=== PATIENT | male | born 1995 | race African-American/Black ===

== ENCOUNTER 2020-09-09 12:51 | Emergency (ER) | payer BC ==
--- OUTSIDE RECORDS SUMMARY | 2020-09-09 12:54 | XMS REPORT | Continuity of Care Document ---
:1995 Author Organization [facility] t Address [address] [place] [address] Care Team Providers Name Role Phone Unavailable Unavailable Unavailable Payers Payer Name Policy Type Policy Number Effective Date Expiration Date S ource Problems This patient has no known problems. Allergies, Adverse Reactions, Alerts Allergy Allergy Status Severity Reaction(s) Onset Inactive Treating Comm ents Source Name Type Date Date Clinician No Known DA Active U [facility] All[facility]ie 10-18 Clear s 00:00: Yeager 00 [facility] Medications This patient has no known medications. Procedures This patient has no known procedures. Results This patient has no known results.
[2020-09-09 14:08] LABS: Urine Blood Trace-lysed (Negative); Urine Glucose Negative (Negative); Urine Protein Negative (Negative); Urine pH 5.5 (5.0-7.0)
--- NOTE | 2020-09-09 14:54 | RAD REPORT ---
EXAM DESCRIPTION: CT - Abdomen Pelvis Wo Contrast - 09/09/2020 2:26 pm CLINICAL HISTORY: Abdominal pain. ABD PAIN COMPARISON: No comparisons TECHNIQUE: CT imaging of the abdomen and pelvis was performed without contrast. Solid organ, bowel a nd vascular assessment is limited due to lack of IV and oral contrast. All CT scans are performed using dose optimization technique as appropriate and may include automated exposure control or mA/KV adjustment according to patient size. FINDINGS: The lower lung zuluaga are clear. Hepatomegaly with steatosis. No bowel obstruction, free air, free fluid or abscess. The appendix is normal. The osseous structures are within normal limits. IMPRESSION: No acute intra-abdominal or pelvic findings. Hepatomegaly with steatosis. A limited non-contrast examination was performed as detailed.
[2020-09-09] MEDS ORDERED: NA CHLORIDE 0.9% 1,000 ML ONE (16:33)
[2020-09-09 18:09] LABS: Absolute Lymphocytes (CBC) 2.6 K/uL (0.7-4.9); Basophils % 1.1 % (0-1.3); Hematocrit 38.2 % (39.6-49.0); Lymphocytes % 31.9 % (15.3-44.8); MPV 7.7 fL (7.6-11.3); RBC Red Blood Cell Count 4.48 M/uL (4.33-5.43)
[2020-09-09 18:38] LABS: BUN Blood Urea Nitrogen 17 mg/dL (7-18); Bicarbonate 29 mmol/L (21-32); Glucose Level 142 mg/dL (74-106); Potassium 3.9 mmol/L (3.5-5.1); Sodium Level 136 mmol/L (136-145)
[2020-09-09 18:40] LABS: Creatine Phosphokinase 2477 U/L (39-308)
--- NOTE | 2020-09-09 18:59 | EDPHYS ---
Physician Documentation [facility] Name: Andrew Beckett Age: 24 yrs Sex: Male : 1995 Arrival Date: 09/09/2020 Time: 12:52 Bed 12 Private MD: ED Physician Cristi Pineda HPI: 09/09 16:33 This 24 yrs old Black Male presents to ER via Ambulatory with complaints of dehydration.kb 16:32 Patient reports abdominal cramping and upper extremity cramps. States he has had this 1 kb time before and it was caused by dehydration.. 16:33 Onset: The symptoms/episode began/occurred yesterday. Severity of symptoms: At their kb worst the symptoms were moderate in the emergency department the symptoms are unchanged. The patient has experienced a previous episode. The patient has not recently seen a physician. Historical: - Allergies: 13:47 No Known Allergies; kg - Home Meds: 13:47 None [Active]; kg - PMHx: 13:47 Hypertension; kg - PSHx: 13:47 None; kg - Immunization history:: Adult Immunizations up to date, Client reports having NOT received the Covid vaccine. - Social history:: Smoking status: Patient reports the use of cigarette tobacco products, smokes one pack cigarettes per day. Patient uses alcohol, weekly. ROS: 16:31 Constitutional: Negative for fever, chills, and weight loss. kb 16:31 Abdomen/GI: Positive for abdominal cramps, Negative for abdominal pain, nausea, vomiting, and diarrhea. 16:31 MS/extremity: Positive for of the right arm and left arm, muscle cramps. 16:31 All other systems are negative. Exam: 16:31 Constitutional: This is a well developed, well nourished patient who is awake, alert, kb and in no acute distress. Head/Face: Normocephalic, atraumatic. ENT: Moist Mucous membranes Cardiovascular: Regular rate and rhythm with a normal S1 and S2. No gallops, murmurs, or rubs. No pulse deficits. Respiratory: Respirations even and unlabored. No increased work of breathing, no retractions or nasal flaring. Abdomen/GI: Soft, non-tender. No distention Skin: Warm, dry with normal turgor. Normal color. MS/ Extremity: Pulses equal, no cyanosis. Neurovascular intact. Full, normal range of motion. Neuro: Awake and alert, GCS 15, oriented to person, place, time, and situation. Moves all extremities. Normal gait. Psych: Awake, alert, with orientation to person, place and time. Behavior, mood, and affect are within normal limits. Vital Signs: 13:44 BP 140 / 99; Pulse 101; Resp 20; Temp 97.1(TE); Pulse Ox 100% on R/A; kg 15:37 BP 144 / 82; Pulse 89; Resp 20; Temp 97.9(O); Pulse Ox 99% on R/A; Weight 188 kg; ld1 Height 5 ft. 5 in. (165.10 cm); Pain 0/10; 17:14 BP 125 / 64; Pulse 93; Resp 18; Pulse Ox 96% on R/A; ld1 18:15 BP 138 / 86; Pulse 86; Resp 18; Pulse Ox 100% ; ld1 15:37 Body Mass Index 68.97 (188.00 kg, 165.10 cm) ld1 MDM: 15:33 Patient medically screened. kb 16:30 Data reviewed: vital signs, nurses notes. Data interpreted: Pulse oximetry: on room air kb is 99 %. Interpretation: normal. 18:58 Counseling: I had a detailed discussion with the patient and/or guardian regarding: the kb historical points, exam findings, and any diagnostic results supporting the discharge/admit diagnosis, lab results, radiology results, the need for outpatient follow up, a family practitioner, to return to the emergency department if symptoms worsen or persist or if there are any questions or concerns that arise at home. 09/09 14:07 Order name: Urine Dipstick-Ancillary; Complete Time: 15:29 EDMS 09/09 15:57 Order name: CBC with Diff; Complete Time: 18:28 kb 09/09 13:50 Order name: CT Abd/Pelvis - Without Contrast; Complete Time: 15:29 kg 09/09 15:57 Order name: Basic Metabolic Panel; Complete Time: 18:41 kb 09/09 15:57 Order name: CPK; Complete Time: 18:41 kb 09/09 15:57 Order name: IV Start; Complete Time: 16:42 kb Administered Medications: 16:42 Drug: NS 0.9% 1000 ml Route: IV; Rate: 1000 ml; Site: left antecubital; ld1 17:50 Follow up: Response: No adverse reaction; IV Status: Completed infusion; IV Intake: ld1 1000ml 18:50 Drug: NS 0.9% 1000 ml Route: IV; Rate: 1000 ml; Site: left antecubital; ss 20:56 Follow up: IV Status: Completed infusion; IV Intake: 1000ml em 18:50 Drug: NS 0.9% 1000 ml Route: IV; Rate: 1000 ml; Site: left antecubital; ss 20:56 Follow up: IV Status: Completed infusion; IV Intake: 1000ml em Disposition Summary: 09/09/20 18:59 Discharge Ordered Location: Home kb Condition: Stable kb Diagnosis - Dehydration kb Followup: kb - With: Emergency Department - When: As needed - Reason: Worsening of condition Followup: kb - With: Private Physician - When: 2 - 3 days - Reason: Recheck today's complaints, Continuance of care, Re-evaluation by your physician Discharge Instructions: - Discharge Summary Sheet kb - Dehydration, Adult kb Forms: - Medication Reconciliation Form kb - Thank You Letter kb - Antibiotic Education kb - Prescription Opioid Use kb - Work release form ea Addendum: 09/12/2020 07:04 Co-signature as Attending Physician, Cristi Pineda MD. r n Signatures: Dispatcher [employer] Amada Zimmer, PROPERTY OFFICER-C PROPERTY OFFICER-Ckb Cristi Pineda MD MD rn Smirch, Shelby, RN RN Yecenia Lopez RN RN ld1 Dixie Glover RN RN kg Munoz, Edgar RN
--- NOTE | 2020-09-09 18:59 | ER ---
Nurse's Notes [facility] Name: Andrew Beckett Age: 24 yrs Sex: Male : 1995 Arrival Date: 09/09/2020 Time: 12:52 Bed 12 Private MD: Diagnosis: Dehydration Presentation: 09/09 13:44 Chief complaint: Patient states: Abdominal cramping starting at 23:00 09/08 and kg continued to get worse. Coronavirus screen: Client denies travel out of the [place] in the last 14 days. At this time, unable to obtain information related to travel outside the [place] At this time, the client does not indicate any symptoms associated with coronavirus-19. Ebola Screen: Patient negative for fever greater than or equal to 101.5 degrees Fahrenheit, and additional compatible Ebola Virus Disease symptoms Patient denies exposure to infectious person. Patient denies travel to an Ebola-affected area in the 21 days before illness onset. Initial Sepsis Screen: Does the patient meet any 2 criteria? No. Patient's initial sepsis screen is negative. Does the patient have a suspected source of infection? No. Patient's initial sepsis screen is negative. Risk Assessment: Do you want to hurt yourself or someone else? Patient reports no desire to harm self or others. Onset of symptoms was September 08, 2020 at 23:00. 13:44 Method Of Arrival: Ambulatory kg 13:44 Acuity: ELIER 3 kg Triage Assessment: 13:47 General: Appears uncomfortable, Behavior is calm, cooperative, appropriate for age, kg quiet. Pain: Complains of pain in abdomen Pain currently is 8 out of 10 on a pain scale. at worst was 10 out of 10 on a pain scale. level that patient reports is acceptable is 3 out of 10 on a pain scale. Quality of pain is described as stabbing. Historical: - Allergies: 13:47 No Known Allergies; kg - Home Meds: 13:47 None [Active]; kg - PMHx: 13:47 Hypertension; kg - PSHx: 13:47 None; kg - Immunization history:: Adult Immunizations up to date, Client reports having NOT received the Covid vaccine. - Social history:: Smoking status: Patient reports the use of cigarette tobacco products, smokes one pack cigarettes per day. Patient uses alcohol, weekly. Screenin:49 Abuse screen: Denies threats or abuse. Denies injuries from another. Nutritional kg screening: No deficits noted. Tuberculosis screening: No symptoms or risk factors identified. Fall Risk None identified. Assessment: 15:37 General: Appears in no apparent distress. comfortable, Behavior is calm, cooperative, ld1 appropriate for age. Pain: Denies pain. Neuro: Level of Consciousness is awake, alert, obeys commands, Oriented to person, place, time, situation. Cardiovascular: Reports diaphoresis, fatigue, pt reports a near syncopal episode two hours ago. Denies chest pain, Capillary refill < 3 seconds Patient's skin is warm and dry. Rhythm is sinus rhythm. Respiratory: Airway is patent Respiratory effort is even, unlabored, Respiratory pattern is regular, symmetrical. GI: Abdomen is non-distended, obese, Patient currently denies abdominal pain. : No signs and/or symptoms were reported regarding the genitourinary system. EENT: No signs and/or symptoms were reported regarding the EENT system. Derm: Skin is diaphoretic. Musculoskeletal: No signs and/or symptoms reported regarding the musculoskeletal system. 17:14 Reassessment: Patient appears in no apparent distress at this time. No changes from ld1 previously documented assessment. Patient is alert, oriented x 3, equal unlabored respirations, skin warm/dry/pink. 18:15 Reassessment: Patient appears in no apparent distress at this time. No changes from ld1 previously documented assessment. Patient and/or family updated on plan of care and expected duration. Pain level reassessed. Patient is alert, oriented x 3, equal unlabored respirations, skin warm/dry/pink. 20:57 Reassessment: Patient appears in no apparent distress at this time. Patient and/or em family updated on plan of care and expected duration. Pain level reassessed. Patient is alert, oriented x 3, equal unlabored respirations, skin warm/dry/pink. Vital Signs: 13:44 BP 140 / 99; Pulse 101; Resp 20; Temp 97.1(TE); Pulse Ox 100% on R/A; kg 15:37 BP 144 / 82; Pulse 89; Resp 20; Temp 97.9(O); Pulse Ox 99% on R/A; Weight 188 kg; ld1 Height 5 ft. 5 in. (165.10 cm); Pain 0/10; 17:14 BP 125 / 64; Pulse 93; Resp 18; Pulse Ox 96% on R/A; ld1 18:15 BP 138 / 86; Pulse 86; Resp 18; Pulse Ox 100% ; ld1 15:37 Body Mass Index 68.97 (188.00 kg, 165.10 cm) ld1 ED Course: 12:52 Patient arrived in ED. am2 13:47 Triage completed. kg 13:47 Arm band placed on left wrist. kg 13:49 Patient has correct armband on for positive identification. kg 14:26 CT Abd/Pelvis - Without Contrast In Process Unspecified. EDMS 15:26 Yecenia Lopez, OTONIEL is Primary Nurse. ld1 15:29 Amada Diaz FNP-C is [facility]. kb 15:29 Cristi Pineda MD is Attending Physician. kb 20:57 No provider procedures requiring assistance completed. IV discontinued, intact, em bleeding controlled, No redness/swelling at site. Pressure dressing applied. Administered Medications: 16:42 Drug: NS 0.9% 1000 ml Route: IV; Rate: 1000 ml; Site: left antecubital; ld1 17:50 Follow up: Response: No adverse reaction; IV Status: Completed infusion; IV Intake: ld1 1000ml 18:50 Drug: NS 0.9% 1000 ml Route: IV; Rate: 1000 ml; Site: left antecubital; ss 20:56 Follow up: IV Status: Completed infusion; IV Intake: 1000ml em 18:50 Drug: NS 0.9% 1000 ml Route: IV; Rate: 1000 ml; Site: left antecubital; ss 20:56 Follow up: IV Status: Completed infusion; IV Intake: 1000ml em Intake: 17:50 IV: 1000ml; Total: 1000ml. ld1 20:56 IV: 1000ml; Total: 2000ml. em 20:56 IV: 1000ml; Total: 3000ml. em Outcome: 18:59 Discharge ordered by . kb 20:57 Discharged to home ambulatory. em 20:57 Condition: improved 20:57 Discharge instructions given to patient, Instructed on discharge instructions, follow up and referral plans. Demonstrated understanding of instructions, follow-up care. 21:39 Patient left the ED. em Signatures: Dispatcher [employer] EDTX Amada Diaz FNP-C FNP-Derek Canseco, RN RN em Roxie Ingram, RN RN ss Anna Watson am2 Yecenia Lopez, RN RN ld1 Dixie Glover RN RN kg
[2020-09-09] MEDS ORDERED: NA CHLORIDE 0.9% 2,000 ML ONE (19:06)
[2020-09-10 16:36] VITALS: TEMP 97.9
[2020-09-10 16:41] VITALS: BP 138/86; O2SAT 100
== END 2020-09-09 21:39 | disposition home or self-care (01) ==
LOC: ER 12:51
DX: E86.0 Dehydration (principal); I10 Essential (primary) hypertension; F17.210 Nicotine dependence, cigarettes, uncomplicated
CPT/HCPCS: 96361; 85025; 80048; 36415; 82550; 81003; 74176; 96360; 99284; J7030 ×2

== ENCOUNTER 2021-04-19 10:41 | Emergency (ER) | payer BC ==
--- OUTSIDE RECORDS SUMMARY | 2021-04-19 10:43 | XMS REPORT | Continuity of Care Document ---
:1995 Author Organization [facility] t Address [address] [place] [address] Care Team Providers Name Role Phone Unavailable Unavailable Unavailable Payers Payer Name Policy Type Policy Number Effective Date Expiration Date S ource Problems This patient has no known problems. Allergies, Adverse Reactions, Alerts Allergy Allergy Status Severity Reaction(s) Onset Inactive Treating Comm ents Source Name Type Date Date Clinician No Known DA Active U [facility] Allergie 10-18 Clear s 00:00: Yeager 00 [facility] Medications This patient has no known medications. Procedures This patient has no known procedures. Results This patient has no known results.
--- NOTE | 2021-04-19 11:41 | RAD REPORT ---
EXAM DESCRIPTION: CT - Stone Protocol - 04/19/2021 11:32 am CLINICAL HISTORY: FLANK PAINleft-side COMPARISON: Abdomen Pelvis Wo Contrast dated 09/09/2020 TECHNIQUE: Axial 3 mm thick images were obtained without oral or IV contrast. The [id number] span s the entirety of the system including uppermost abdomen and lung bases. All CT scans are performed using dose optimization technique as appropriate and may include automated exposure control or mA/KV adjustment according to patient size. FINDINGS: No hydronephrosis is present and no obstructing ureteral calculi. No suspicious renal mass es. Isodense masses and pyelonephritis are not excluded on a stone protocol CT scan. No significant a drenal finding. No urinary bladder suspicious finding. Liver size is prominent with diffuse fatty infiltration. This matches the August 2020 study. No focal l iver lesion identifiable. Spleen and pancreas show no suspicious findings. No gallbladder or biliary tree abnormality identified. No suspicious bowel findings. No hernia, mass or bulky lymphadenopathy noted. No free air, free fluid or inflammatory stranding. No significant bony abnormality. IMPRESSION: Noncontrast CT abdomen and pelvis imaging shows no hydronephrosis, obstructing calculus or other finding to explain provided history of left flank pain. Pronounced fatty infiltration of the liver is again noted. No focal liver lesions seen. Overall, exam shows no significant or suspicious change from August 2020. Isodense masses and pyelonephritis are not excluded on stone protocol technique.
[2021-04-19 12:12] LABS: Urine Blood Negative (Negative); Urine Glucose Negative (Negative); Urine Protein Negative (Negative); Urine pH 5.5 (5.0-7.0)
[2021-04-19 12:22] LABS: Lymphocytes % 34.7 % (15.3-44.8); MPV 7.8 fL (7.6-11.3); RBC Red Blood Cell Count 4.47 M/uL (4.33-5.43)
[2021-04-19 12:31] LABS: Urine Bacteria NONE SEEN /HPF (NONE SEEN); Urine RBC <5 /HPF (NONE SEEN)
[2021-04-19 12:43] LABS: ALT/SGPT 36 U/L (12-78); AST/SGOT 19 U/L (15-37); Alkaline Phosphatase 66 U/L (45-117); BUN Blood Urea Nitrogen 11 mg/dL (7-18); Bicarbonate 28 mmol/L (21-32); Bilirubin Direct 0.1 mg/dL (0-0.2); Bilirubin Total 0.6 mg/dL (0.2-1.0); Glucose Level 82 mg/dL (74-106); Lipase 56 U/L (73-393); Protein, Total 7.9 g/dL (6.4-8.2); Sodium Level 137 mmol/L (136-145)
--- NOTE | 2021-04-19 13:55 | EDPHYS ---
Physician Documentation [facility] Name: Andrew Beckett Age: 25 yrs Sex: Male : 1995 Arrival Date: 04/19/2021 Time: 10:45 Bed 17 Private MD: ED Physician Zulema Lozada HPI: 04/19 11:49 This 25 yrs old Black Male presents to ER via Ambulatory with complaints of Chest Pain, kb Back Pain. 11:50 The patient presents with abdominal pain in the left upper quadrant. Onset: The kb symptoms/episode began/occurred today. The symptoms do not radiate. Associated signs and symptoms: none. The symptoms are described as constant. Modifying factors: The symptoms are alleviated by nothing, the symptoms are aggravated by nothing. Severity of pain: At its worst the pain was moderate in the emergency department the pain is unchanged. The patient has not experienced similar symptoms in the past. The patient has not recently seen a physician. Pt reports left abd pain, left flank pain and "weird feeling" in left chest. States the flank pain came on when urinating. . Historical: - Allergies: 11:03 No Known Allergies; ab2 - Home Meds: 11:03 metformin 500 mg Oral tab 1 tab 2 times per day [Active]; ab2 - PMHx: 11:03 Hypertension; Diabetes mellitus; ab2 - Immunization history:: Adult Immunizations up to date. - Social history:: Smoking status: Reported history of juuling and/or vaping. ROS: 11:48 Constitutional: Negative for fever, chills, and weight loss. kb 11:48 Cardiovascular: Positive for chest pain, Negative for edema, orthopnea, palpitations, paroxysmal nocturnal dyspnea. 11:48 Abdomen/GI: Positive for abdominal pain, of the anterior aspect of left lateral abdomen and posterior aspect of left lateral abdomen. 11:48 All other systems are negative. Exam: 11:48 Constitutional: This is a well developed, well nourished patient who is awake, alert, kb and in no acute distress. Head/Face: Normocephalic, atraumatic. ENT: Moist Mucous membranes Cardiovascular: Regular rate and rhythm with a normal S1 and S2. No gallops, murmurs, or rubs. No pulse deficits. Respiratory: Respirations even and unlabored. No increased work of breathing. Talking in full sentences Abdomen/GI: Soft, non-tender. No distention Skin: Warm, dry with normal turgor. Normal color. MS/ Extremity: Pulses equal, no cyanosis. Neurovascular intact. Full, normal range of motion. Neuro: Awake and alert, GCS 15, oriented to person, place, time, and situation. Moves all extremities. Normal gait. Psych: Awake, alert, with orientation to person, place and time. Behavior, mood, and affect are within normal limits. 11:48 ECG was reviewed by the Attending Physician. 11:48 Back: pain, that is moderate, CVA tenderness, that is mild, is noted on the left. Vital Signs: 11:00 BP 158 / 81; Pulse 76; Resp 18; Temp 97.9(TE); Pulse Ox 100% ; Weight 170.1 kg; Height ab2 5 ft. 6 in. (167.64 cm); Pain 6/10; 12:15 BP 132 / 74; Pulse 74; Resp 15; Pulse Ox 99% ; Pain 5/10; eo2 13:00 BP 128 / 65; Pulse 73; Resp 20; Pulse Ox 99% ; Pain 5/10; eo2 14:00 BP 130 / 90; Pulse 74; Resp 17; Pulse Ox 100% ; Pain 5/10; eo2 14:58 BP 159 / 87; Pulse 68; Resp 16; Pulse Ox 98% ; Pain 3/10; eo2 11:00 Body Mass Index 60.53 (170.10 kg, 167.64 cm) ab2 MDM: 11:09 Patient medically screened. 11:49 Data reviewed: vital signs, nurses notes. Data interpreted: Pulse oximetry: on room air kb is 100 %. Interpretation: normal. 13:54 Counseling: I had a detailed discussion with the patient and/or guardian regarding: the kb historical points, exam findings, and any diagnostic results supporting the discharge/admit diagnosis, lab results, radiology results, the need for outpatient follow up, a family practitioner, to return to the emergency department if symptoms worsen or persist or if there are any questions or concerns that arise at home. 04/19 11:16 Order name: Basic Metabolic Panel kb 04/19 11:16 Order name: CBC with Diff; Complete Time: 12:30 kb 04/19 11:16 Order name: Hepatic Function kb 04/19 11:16 Order name: Lipase kb 04/19 11:16 Order name: Troponin HS kb 04/19 11:16 Order name: Urine Microscopic Only; Complete Time: 12:32 kb 04/19 11:16 Order name: IV Saline Lock; Complete Time: 12:14 kb 04/19 11:16 Order name: Labs collected and sent; Complete Time: 12:14 kb 04/19 11:16 Order name: EKG; Complete Time: 11:16 kb 04/19 11:16 Order name: EKG - Nurse/Tech; Complete Time: 11:24 kb 04/19 11:16 Order name: Chest Single View XRAY; Complete Time: 14:23 kb 04/19 11:16 Order name: CT Stone Protocol; Complete Time: 11:46 kb 04/19 12:12 Order name: Urine Dipstick-Ancillary EDPR 04/19 11:16 Order name: Urine Dipstick-Ancillary (obtain specimen); Complete Time: 12:14 kb EC:48 Rate is 80 beats/min. Rhythm is regular. QRS [place] is Normal. PA interval is normal at kb 166 msec. QRS interval is normal at 84 msec. QT interval is normal at 362 msec. Administered Medications: 14:20 Drug: Ketorolac 15 mg Route: IVP; Site: right antecubital; eo2 14:59 Follow up: Response: No adverse reaction; Pain is decreased eo2 Disposition Summary: 04/19/21 13:54 Discharge Ordered Location: Home kb Condition: Stable kb Diagnosis - Abdominal pain, Generalized kb Followup: kb - With: Emergency Department - When: As needed - Reason: Worsening of condition Followup: kb - With: Private Physician - When: 2 - 3 days - Reason: Recheck today's complaints, Continuance of care, Re-evaluation by your physician Discharge Instructions: - Discharge Summary Sheet kb - Abdominal Pain, Adult, [id number] kb Forms: - Medication Reconciliation Form kb - Thank You Letter kb - Antibiotic Education kb - Prescription Opioid Use kb Prescriptions: - Diclofenac Sodium 75 mg Oral tablet,delayed release (DR/EC) - take 1 tablet by ORAL route 2 times per day As needed; 30 tablet; Refills: 0, kb Product Selection Permitted Signatures: Dispatcher [employer] EDAmada Tejada, PAOLO-C PAOLO-Amina Figueredo RN RN eo2 Bleininger, Trent ab2
--- NOTE | 2021-04-19 13:55 | ER ---
Nurse's Notes [facility] Name: Andrew Beckett Age: 25 yrs Sex: Male : 1995 Arrival Date: 04/19/2021 Time: 10:45 Bed 17 Private MD: Diagnosis: Abdominal pain, Generalized Presentation: 04/19 11:00 Chief complaint: Patient states: "The left side of my chest and left side of my stomach ab2 hurt. I just don't feel right. I don't know if its my liver or kidneys but it radiates to my back." Pt denies any urinary symptoms. Pt states this has been going on for a few days. Coronavirus screen: Vaccine status: Patient reports receiving the 2nd dose of the covid vaccine. Client denies travel out of the [place] in the last 14 days. At this time, the client does not indicate any symptoms associated with coronavirus-19. Ebola Screen: Patient negative for fever greater than or equal to 101.5 degrees Fahrenheit, and additional compatible Ebola Virus Disease symptoms Patient denies exposure to infectious person. Patient denies travel to an Ebola-affected area in the 21 days before illness onset. No symptoms or risks identified at this time. Initial Sepsis Screen: Does the patient meet any 2 criteria? No. Patient's initial sepsis screen is negative. Does the patient have a suspected source of infection? No. Patient's initial sepsis screen is negative. Risk Assessment: Do you want to hurt yourself or someone else? Patient reports no desire to harm self or others. Onset of symptoms is unknown. 11:00 Method Of Arrival: Ambulatory ab2 11:00 Acuity: ELIER 3 ab2 Triage Assessment: 11:04 General: Appears in no apparent distress. comfortable, Behavior is calm, cooperative, ab2 appropriate for age. Pain: Complains of pain in anterior aspect of left upper chest, left lateral anterior chest, left lateral posterior chest and left breast. Cardiovascular: Reports chest pain, Chest pain is described as vague, Pt states its not a pain, just uncomfortable . Historical: - Allergies: 11:03 No Known Allergies; ab2 - Home Meds: 11: metformin 500 mg Oral tab 1 tab 2 times per day [Active]; ab2 - PMHx: 11:03 Hypertension; Diabetes mellitus; ab2 - Immunization history:: Adult Immunizations up to date. - Social history:: Smoking status: Reported history of juuling and/or vaping. Screenin:15 Abuse screen: Denies threats or abuse. Denies injuries from another. Nutritional eo2 screening: No deficits noted. Tuberculosis screening: No symptoms or risk factors identified. Fall Risk None identified. Assessment: 12:14 General: Appears in no apparent distress. comfortable, Behavior is calm, cooperative. eo2 Pain: Complains of pain in chest Pain radiates to left lateral posterior chest Pain began 1 day ago. 12:15 Neuro: Level of Consciousness is awake, alert, obeys commands, Oriented to person, eo2 place, time, situation, Denies dizziness, headache. Cardiovascular: Reports chest pain, left sided chest pain into left back/abdomen Capillary refill < 3 seconds Rhythm is sinus bradycardia. Respiratory: Reports shortness of breath occasionally Airway is patent Trachea midline Respiratory effort is even, unlabored, Respiratory pattern is regular, symmetrical, Breath sounds are clear bilaterally. GI: Reports upper abdominal pain, Patient currently denies diarrhea, nausea, vomiting. : No deficits noted. No signs and/or symptoms were reported regarding the genitourinary system. Vital Signs: 11:00 BP 158 / 81; Pulse 76; Resp 18; Temp 97.9(TE); Pulse Ox 100% ; Weight 170.1 kg; Height ab2 5 ft. 6 in. (167.64 cm); Pain 6/10; 12:15 BP 132 / 74; Pulse 74; Resp 15; Pulse Ox 99% ; Pain 5/10; eo2 13:00 BP 128 / 65; Pulse 73; Resp 20; Pulse Ox 99% ; Pain 5/10; eo2 14:00 BP 130 / 90; Pulse 74; Resp 17; Pulse Ox 100% ; Pain 5/10; eo2 14:58 BP 159 / 87; Pulse 68; Resp 16; Pulse Ox 98% ; Pain 3/10; eo2 11:00 Body Mass Index 60.53 (170.10 kg, 167.64 cm) ab2 Vitals: 12:15 Cardiac Rhythm Assessment Regular Sinus rhythm. eo2 ED Course: 10:45 Patient arrived in ED. ds1 10:56 Amada Diaz FNP-C is PHCP. kb 10:57 Zulema Lozada MD is Attending Physician. kb 11:03 Triage completed. ab2 11:05 Arm band placed on left wrist. ab2 11:32 CT Stone Protocol In Process Unspecified. EDMS 12:13 Amina Pearson, RN is Primary Nurse. eo2 12:14 Urine Dipstick-Ancillary Sent. eo2 12:14 Urine Microscopic Only Sent. eo2 12:15 Patient has correct armband on for positive identification. Placed in gown. Cardiac eo2 monitor on. Pulse ox on. NIBP on. Door closed. Noise minimized. 12:15 No provider procedures requiring assistance completed. Inserted saline lock: 20 gauge eo2 in right antecubital area, using aseptic technique. Blood collected. Patient maintains SpO2 saturation greater than 95% on room air. 14:06 Chest Single View XRAY In Process Unspecified. EDMS 14:59 IV discontinued, intact. eo2 Administered Medications: 14:20 Drug: Ketorolac 15 mg Route: IVP; Site: right antecubital; eo2 14:59 Follow up: Response: No adverse reaction; Pain is decreased eo2 Outcome: 13:54 Discharge ordered by MD. kb 14:59 Discharged to home ambulatory. eo2 14:59 Condition: stable 14:59 Discharge instructions given to patient, Instructed on discharge instructions, follow up and referral plans. medication usage, Demonstrated understanding of instructions, follow-up care, medications, Prescriptions given X 1. 15:00 Patient left the ED. eo2 Signatures: Dispatcher [employer] EDMN Amada Diaz, WATER METER READER-C WATER METER READER-Waib Raquel Toribio ds1 Amina Pearson RN RN eo2 Trent Lema ab2
[2021-04-19] MEDS ORDERED: KETOROLAC 30 MG/ML INJ ONE (14:13)
--- NOTE | 2021-04-19 14:22 | RAD REPORT ---
EXAM DESCRIPTION: RAD - Chest Single View - 04/19/2021 2:06 pm CLINICAL HISTORY: CHEST PAIN Chest pain. COMPARISON: Chest Single View dated 09/16/2015 FINDINGS: Portable technique limits examination quality. The lungs are grossly clear. The heart is normal in size. No displaced fractures. IMPRESSION: No acute intrathoracic process suspected.
[2021-04-19 15:14] LABS: Albumin 3.8 g/dL (3.4-5.0)
[2021-04-19 15:24] VITALS: TEMP 97.9
[2021-04-19 15:31] VITALS: BP 159/87; O2SAT 98
--- NOTE | 2021-04-20 12:52 | EKG ---
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
== END 2021-04-19 15:00 | disposition home or self-care (01) ==
LOC: ER 10:41
DX: R10.84 Generalized abdominal pain (principal); E11.9 Type 2 diabetes mellitus without complications; I10 Essential (primary) hypertension
CPT/HCPCS: 36415; 71045; 74176; 76377; 80048; 80076; 81003; 81015; 83690; 84484; 85025; 93005; 96374; 99285

== ENCOUNTER 2024-03-25 00:08 | Emergency (ER) | payer BC ==
--- OUTSIDE RECORDS SUMMARY | 2024-03-25 00:12 | XMS REPORT | Continuity of Care Document ---
Author Name Unknown Address [address] [place] [address] [facility] Address [address] [place] [address] Care Team Providers Care Ct Scan Technician Name Role Phone Ketan Reyes Primary Care Physician [phone] Doctor Unassigned, [place] Attending Clinician U TICO Escobar Attending Clinician Unavailable TICO LOAIZA Attending Clinician Unavailable Lisette Carter DO Attending Clinician [phone] Delio Swanson MD Attending Clinician [phone] Tico Loaiza DO Attending Clinician [phone] EMILY PERRY Attending Clinician Unavailable EMILY PERRY Attending Clinician Unavailable Emily Perry MD Attending Clinician [phone] Pob, [facility] Main Attending Clinician UnavailGuerline Estrada MD Attending Clinician [phone] GUERLINE NGUYEN Attending Clinician Yanely Kearns MD, Les Haque Attending Clinician [phone] TICO LOAIZA Admitting Clinician Unavailable Tico Loaiza DO Admitting Clinician [phone] EMILY PERRY Admitting Clinician Unavailable Payers Payer Name Policy Type Policy Number Effective Date Expirati on Date Source Problems Condition Name Condition Details Condition Category Status Onset Date Resolution Date Last Treatment Date Treating Clinician Comments Source Acute biliary pancreatit is without infection or necrosis Acute biliary pancreatit is without infection or necrosis Disease Active 02-21 00:00: 00 [facility] Morbid obesity with body mass index of 50 or higher Morbid obesity with body mass index of 50 or higher Disease Active 02-21 00:00: 00 [facility] Allergies, Adverse Reactions, Alerts Allergy Name Allergy Type Status Severity Reaction(s) Onset Date Inactive Date Treating Clinician Comments Source No Known Allergie s DA Active U 10-18 00:00: 00 [facility] NO KNOWN ALLERGIE S Drug Class Active [facility] Social History Social Habit Start Date Stop Date Quantity Comments Source History of tobacco use Cigarette Smoker [facility] of Social function 2024-02-22 00:00:00 2024-02-22 00:00:00 [facility] Sex assigned at 1995 00:00:00 1995 00:00:00 [facility] Smoking Status Start Date Stop Date Source Tobacco smoking consumption unknown [facility] Occasional tobacco smoker 2024-02-22 00:00:00 [facility] Medications Ordered Medication Name Filled Medication Name Start Date Stop Date Current Medication? Ordering Clinician Indication Dosage Frequency Signature (SIG) Comments Components Source metformin HCl (METFORMIN ORAL) 02-22 18:02: 55 Yes 500mg Take 500 mg by mouth in the morning and 500 mg in the evening. [facility] losartan 25 mg tablet 02-22 18:02: 55 Yes 25mg Take 1 tablet by mouth in the morning. [facility] losartan (COZAAR) tablet 25 mg 02-22 15:00: 00 02-23 00:02 :55 No 25mg 25 mg, Oral, DAILY, First dose on Mon02/23/24 at 0900, Until Discontinu ed, Routine [facility] enoxaparin (LOVENOX) injection 40 mg 02-22 02:00: 00 02-23 00:02 :55 No 40mg 40 mg, Subcutaneo us, BID, First dose (after last modificati on) on Mon02/22/24 at 2000, Until Discontinu ed, Routine [facility] ibuprofen (MOTRIN IB) tablet 200 mg 02-22 00:00: 43 02-23 00:02 :55 No 200mg 200 mg, Oral, Q6HPRN, Starting on Mon02/22/24 at 1800, Until Mon02/23/24 at 1802, Routine, Pain (scale 1-3) [facility] glucagon HCL injection 1 mg 02-21 17:42: 22 02-23 00:02 :55 No 1mg [facility] dextrose 50 % in water (D50W) injection 25 mL 02-21 17:42: 22 02-23 00:02 :55 No 25mL [facility] acetaminoph en-codeine (TYLENOL #3) 300-30 mg tablet 1 tablet 02-21 17:35: 19 02-23 00:02 :55 No 1{tbl} 1 tablet, Oral, Q4HPRN, Starting on Mon02/22/24 at 1135, Until Mon02/23/24 at 1802, Routine, Pain (scale 4-6) [facility] HYDROcodone -acetaminop hen (NORCO 5) tablet 1 tablet 02-21 17:35: 08 02-23 00:02 :55 No 1{tbl} 1 tablet, Oral, Q6HPRN, Starting on Mon02/22/24 at 1135, Until Mon02/23/24 at 1802, Routine, Pain (scale 7-10) [facility] NaCl 0.9% (NS) IV infusion 1,000 mL 02-21 16:30: 00 02-23 00:02 :55 No 1000mL at 125 mL/hr, IV Infusion, CONTINUOUS , Starting on Mon02/22/24 at 1030, Until Mon02/23/24 at 1802, Routine [facility] ondansetron (ZOFRAN (PF)) injection 4 mg 02-21 16:28: 15 02-23 00:02 :55 No 4mg 4 mg, Slow IV Push, Q6HPRN, Starting on Mon02/22/24 at 1028, Until Mon02/23/24 at 1802, Administer over 2-5 Minutes, 2 mL [facility] lactated ringers IV infusion 1,000 mL 02-21 12:30: 00 02-21 16:01 :00 No 1000mL at 999 mL/hr, 1,000 mL, Intravenou s, ONCE, 1 dose, On Mon02/22/24 at 0630, Routine [facility] iopamidol (ISOVUE 370-500 mL) injection 100 mL 02-21 12:06: 00 02-21 11:55 :00 No [id number] 100mL 100 mL, Intravenou s, ONCE, 1 dose, On Mon02/22/24 at 0615, [facility] 4 mg 02-21 11:45: 00 02-22 03:43 :00 No 4mg 4 mg, Slow IV Push, ONCE, 1 dose, On Mon02/22/24 at 0545, STAT [facility] maalox/diph enhydrAMINE :lidocaine2 %viscous 1:1:1: suspension (COMPOUNDED ) 2023-02 06:45: 00 02-04 06:43 :00 No 15mL 15 mL, Oral, ONCE, 1 dose, On Mon02/05/24 at 0045, Routine [facility] fentanyl PF (SUBLIMAZE (PF)) injection 25 mcg 2023-02 06:45: 00 02-04 06:43 :00 No 25ug 25 mcg, Slow IV Push, ONCE, 1 dose, On Mon02/05/24 at 0045, STAT [facility] maalox/diph enhydrAMINE :lidocaine2 %viscous 1:1:1: suspension (COMPOUNDED ) 2023-02 02:15: 00 01-30 02:24 :00 No 15mL 15 mL, Oral, ONCE, 1 dose, On Mon01/30/24 at 2014, Routine [facility] ondansetron (ZOFRAN (PF)) injection 4 mg 2023-02 02:15: 00 01-30 02:29 :00 No 4mg 4 mg, Slow IV Push, ONCE, 1 dose, On Mon01/30/24 at 2014, Administer over 2-5 Minutes, 2 mL [facility] morpHINE (4 mg/mL) injection 4 mg 2023-02 02:15: 00 01-30 02:24 :00 No 4mg 4 mg, Slow IV Push, ONCE, 1 dose, On Mon01/30/24 at 2014, STAT [facility] ondansetron (ZOFRAN) 4 mg tablet 2023-02 00:00: 00 Yes [id number] 4mg Take 1 tablet by mouth every 8 (eight) hours as needed for Nausea and Vomiting (N/V). [facility] HYDROcodone -acetaminop hen 10-325 mg tablet 2023-02 00:00: 00 02-06 05:59 :00 Yes 4647 1{tbl} Take 1 tablet by mouth every 6 (six) hours as needed for Pain (scale 7-10) for up to 7 days. Indication s: acute pain [facility] Vital Signs Vital Name Observation Time Observation Value Comments S ource Systolic blood pressure 2024-02-23 18:37:00 127 mm[Hg] [facility] Diastolic blood pressure 2024-02-23 18:37:00 81 mm[Hg] [facility] Heart rate 2024-02-23 18:37:00 77 /min [facility] Body temperature 2024-02-23 18:37:00 36.5 Evelyn [facility] Respiratory rate 2024-02-23 18:37:00 18 /min [facility] Oxygen saturation in Arterial blood by Pulse oximetry 2024-02-23 18:37:00 98 /min [facility] Body height 2024-02-22 23:51:00 167.6 cm [facility] Body weight 2024-02-22 23:51:00 176.903 kg [facility] BMI 2024-02-22 23:51:00 62.95 kg/m2 [facility] Systolic blood pressure 2024-02-22 08:18:00 174 mm[Hg] [facility] Diastolic blood pressure 2024-02-22 08:18:00 114 mm[Hg] [facility] Heart rate 2024-02-22 08:18:00 101 /min [facility] Body temperature 2024-02-22 08:18:00 36.83 Evelyn [facility] Respiratory rate 2024-02-22 08:18:00 21 /min [facility] Body height 2024-02-22 08:18:00 165.1 cm [facility] Body weight 2024-02-22 08:18:00 176.903 kg [facility] BMI 2024-02-22 08:18:00 64.90 kg/m2 [facility] Oxygen saturation in Arterial blood by Pulse oximetry 2024-02-22 08:18:00 99 /min [facility] Systolic blood pressure 2024-02-05 08:00:00 170 mm[Hg] [facility] Diastolic blood pressure 2024-02-05 08:00:00 78 mm[Hg] [facility] Heart rate 2024-02-05 08:00:00 77 /min [facility] Respiratory rate 2024-02-05 08:00:00 16 /min [facility] Oxygen saturation in Arterial blood by Pulse oximetry 2024-02-05 08:00:00 95 /min [facility] Body temperature 2024-02-05 06:06:00 36.06 Evelyn [facility] Body height 2024-02-05 06:06:00 167.6 cm [facility] Body weight 2024-02-05 06:06:00 176.903 kg [facility] BMI 2024-02-05 06:06:00 62.95 kg/m2 [facility] Systolic blood pressure 2024-01-31 04:32:18 134 mm[Hg] [facility] Diastolic blood pressure 2024-01-31 04:32:18 70 mm[Hg] [facility] Heart rate 2024-01-31 04:32:18 80 /min [facility] Body temperature 2024-01-31 04:32:18 36.5 [facility] Respiratory rate 2024-01-31 04:32:18 21 /min [facility] Oxygen saturation in Arterial blood by Pulse oximetry 2024-01-31 04:32:18 97 /min [facility] Body height 2024-01-31 01:13:00 167.6 cm [facility] Body weight 2024-01-31 01:13:00 176.903 kg [facility] BMI 2024-01-31 01:13:00 62.95 kg/m2 [facility] Procedures Procedure Date / Time Performed Performing Clinician Source MAGNESIUM 2024-02-23 12:32:00 Ney Nguyen [facility] BASIC METABOLIC PANEL (NA, K, CL, CO2, GLUCOSE, BUN, CREATININE, CA) 2024-02-23 12:32:00 Gabriela Arrieta [facility] CBC WITH DIFF 2024-02-23 12:31:00 Ney Nguyen [facility] PHOSPHORUS 2024-02-22 17:16:00 Ney Nguyen [facility] US GALL BLADDER 2024-02-22 13:48:09 Lisette Carter [facility] CT ABDOMEN PELVIS W CONTRAST 2024-02-22 12:06:13 Lisette Carter [facility] LIPASE 2024-02-22 11:50:00 Raul, [facility] HEPATIC FUNCTION PANEL (13466) (ALB,T.PRO,BILI T,BU/BC,ALT,AST,ALK PHOS) 2024-02-22 11:50:00 [facility] (NA, K, CL, CO2, GLUCOSE, BUN, CREATININE, CA) 2024-02-22 11:50:00 Raul [facility] LIPID PANEL (68685)(TOTAL CHOLESTEROL, TRIGLYCERIDES, HDL) 2024-02-22 11:50:00 Delio Swanson [facility] GLYCOSYLATED HEMOGLOBIN (A1C) 2024-02-22 11:50:00 Gabriela Arrieta [facility] EXTRA TUBE LAV 2024-02-22 11:50:00 Raul [facility] COMP. METABOLIC PANEL (47272) 2024-02-22 08:28:00 mEily Perry [facility] CBC WITH DIFF 2024-02-22 08:28:00 Emily Perry [facility] URINALYSIS 2024-02-05 07:24:00 Les Kearns [facility] LIPASE 2024-02-05 06:15:00 Les Kearns [facility] COMP. METABOLIC PANEL (10832) 2024-02-05 06:15:00 Les Kearns [facility] CBC WITH DIFF 2024-02-05 06:15:00 Les Kearns [facility] CT ABDOMEN PELVIS WO CONTRAST 2024-01-31 03:24:57 Emily Perry [facility] LIPASE 2024-01-31 02:24:00 Emily Perry [facility] TROPONIN I 2024-01-31 02:24:00 Emily Perry [facility] COMP. METABOLIC PANEL (24192) 2024-01-31 02:24:00 Emily Perry [facility] CBC WITH DIFF 2024-01-31 02:24:00 Taylor Perrypavithra [facility] Encounters Start Date/Time End Date/Time Encounter Type Admission Type Attending Clinicians Care Facility Care Department Encounter ID Source 2024-02-15 00:00:00 2024-03-23 18:23:08 Patient Secure Msg Doctor Unassigned, [place] Doctor Unassigned, [place] [facility] 1..114 350.1.13.10 4.2.7.2.686 [id number] [facility] 2024-02-22 05:23:00 2024-02-23 18:02:00 Outpatient X TICO LOAIZA [facility] [id number] [facility] 2024-02-22 05:23:00 2024-02-23 18:02:00 Emergency Lisette Carter, Tico Robert [facility] ([place]) 1.114 350.1.13.10 4.2.7.2.686 [id number] [facility] 2024-02-22 02:16:00 2024-02-22 03:23:00 Emergency X EMILY PERRY WAKILI [facility] [id number] [facility] 2024-02-22 02:16:00 2024-02-22 03:23:00 Emergency Emily Perry [facility] 1.114 350.1.13.10 4.2.7.2.686 [id number] [facility] 2024-02-09 10:45:00 2024-02-09 11:00:00 Cherry Grower Visit Poabigail, [facility] Main Guerline Nguyen, [facility] Main [facility] 1..114 350.1.13.10 4.2.7.2.686 [id number] [facility] 2024-02-09 10:45:00 2024-02-09 10:45:00 Outpatient R PATRICKGUERLINE [facility] [id number] [facility] 2024-02-05 00:01:00 2024-02-05 02:23:00 Emergency Les Kearns [facility] [id number] 350.1.13.10 4.2.7.2.686 [id number] [facility] 2024-01-30 19:17:00 2024-01-30 22:38:00 Emergency Emily Perry [facility] 1.2.840.114 350.1.13.10 4.2.7.2.686 [id number] [facility] 2024-01-30 19:17:00 2024-01-30 22:38:00 Emergency X CHANDAN PERRYAMIE SULLIAVNANNE TAYLORPAVITHRA [facility] ERT [id number] [facility] Results Test Description Test Time Test Comments Results Result Co mments Source [facility] [id number] 16:11:34EXAM: US GALL BLADDER HISTORY: 28 years-old Male with RUQ abdominal pain . TECHNIQUE: Limited abdominal ultrasound performed focused on thegallbladder. Main portal vein was evaluated with color Doppler imaging.Anesthesiologist Physician images were obtained for the record. COMPARISON: CT abdomen pelvis dated 02/22/2024 FINDINGS: Limited evaluation due to patient's body habitus. LIVER: Limited evaluation of theliver on this focused gallbladder examination..Visualized liver parenchyma appears echogenic with decreased distinction ofperiportal echogenicity, sparing a patchy focus around gallbladder. Hepatopetal flow in the main portal vein. GALLBLADDER:No cholelithiasis. Hyperechoic foci within the nondependent gallbladderfundal wall with common tail artifact are likely representingadenomyomatosis, the largest one measuring up to 0.9 cm. Normal gallbladder wall thickness, 2 mm.Negative Hopson's sign.. BILE DUCTS:No intra- or extrahepatic biliary dilatation..Common Duct diameter: 0.4 cm. PANCREAS: Limited visualization due to shadowing from bowel gas..[facility] (92110)(Total Cholesterol, Triglycerides, HDL) 2024-02-22 15:01:22* Test Item Value Reference Range Interpretation Comme nts CHOL (test code = 1209077064) 186 mg/dL 120-200 HDL (test code = 3015467807) 27 mg/dL >=40 L HDLC RATIO (test code = 1670194914) 6.9 <=5.0 H TRIG (test code = 5560103827) 102 mg/dL 30-170 LDL CHOL (test code = 05452-5) 139 mg/dL <=160 VLDL (test code = 7470222076) 20 mg/dL 5-60 Lab Interpretation (test cod e = 12237-1) [facility]normal [facility] 12:50:45* Test Item Value Reference Range Interpretation Comme nts LIPASE (test code = 0234505591) 3226 U/L 0-220 H Lab Interpretation (test cod e = 73637-6) [facility] w [id number] 12:46:57EXAM: CT ABDOMEN PELVIS W CONTRAST HISTORY: 28 years-old Male with Abdominal abscess/infection suspected .Lipase 4196. TECHNIQUE: Contiguous axial imaging from the level of the lung basesthrough the proximal thighs was performed with intravenous contrast.Coronal and sagittal reconstructions were obtained. COMPARISON: 01/30/2024 FINDINGS: LOWER THORAX: The partially included lungs are clear. LIVER: Normal liver contour. No mass. GALLBLADDER AND BILIARY TREE: No cholelithiasis. No ductal dilatation. SPLEEN: Normal PANCREAS: Subtle peripancreatic fat stranding. Suspected enlargement of thepancreatic tail where there is decrease definition of pancreatic clefts. Noductal dilatation. No peripancreatic collection. ADRENAL GLANDS: Normal adrenal glands. KIDNEYS: Symmetric nephrograms. No stones or hydronephrosis. No mass. PELVIS/BLADDER: Unremarkable bladder. Normal prostate. GI TRACT: No boweldilatation. Normal appendix. PERITONEUM AND RETROPERITONEUM: No free air or organized fluid collection. LYMPH NODES: No lymphadenopathy. VESSELS: No critical stenosis. The SMA and celiac trunk share a commonorigin. BONES AND SOFT TISSUES: No acute osseous findings. Small fat-containingumbilical hernia.[facility] (NA, K, CL, CO2, GLUCOSE, BUN, CREATININE, CA)2024-02-22 12:34:38* Test Item Value Reference Range Interpretation Comme nts NA (test code = 7108471795) 137 mmol/L 135-145 K (test code = 9602767814) 4.2 mmol/L 3.5-5.0 CL (test code = 8288057547) 103 mmol/L 98-108 CO2 TOTAL (test code = 5791507739) 29 mmol/L 23-31 AGAP (test code = 8134352927) 5 2-16 BUN (test code = 2190568152) 10 mg/dL 7-23 GLUCOSE (test code = 8926756661) 173 mg/dL 70-110 H CREATININE (test code = 2160-0) 0.75 mg/dL 0.60-1.25 CALCIUM (test code = 3979664270) 9.2 mg/dL 8.6-10.6 eGFR (test code = 21002-2) 124.5 mL/min/1.73m2 CKD-EPI eGFR (2020). Assuming creatinine has been stable day-to-day for at least three months, the eGFR indicates Category G1 (>= 90 mL/min/1.73 m2) Lab Interpretation (test code = 63214-9) Abnormal [facility] PAN[facility] (52770) (ALB,T.PRO,BILI T,BU/BC,ALT,AST,ALK PHOS)2024-02-22 12:34:38* Test Item Value Reference Range Interpretation Comme nts TOTAL BILI (test code = 5733452249) 0.8 mg/dL 0.1-1.1 BILI UNCON (test code = 4593804852) 0.4 mg/dL 0.1-1.1 BILI CONJ (test code = 4674870156) 0.0 mg/dL 0.0-0.3 T PROTEIN (test code = 4749154335) 8.2 g/dL 6.3-8.2 ALBUMIN (test code = 8198599902) 4.4 g/dL 3.5-5.0 ALK PHOS (test code = 1099443483) 69 U/L 34-122 ALTv (test code = 1742-6) 33 U/L 5-50 AST(SGOT) (test code = 0946213479) 34 U/L 13-40 Lab Interpretation (test cod e = 97893-3) Normal [facility] 09:12:50* Test Item Value Reference Range Interpretation Comme nts NA (test code = 0882241723) 138 mmol/L 135-145 K (test code = 3247615924) 3.8 mmol/L 3.5-5.0 CL (test code = 4016670331) 102 mmol/L 98-108 CO2 TOTAL (test code = 7776406806) 26 mmol/L 23-31 AGAP (test code = 9888903720) 10 2-16 BUN (test code = 6360980124) 10 mg/dL 7-23 GLUCOSE (test code = 3709769032) 189 mg/dL 70-110 H CREATININE (test code = 2160-0) 0.85 mg/dL 0.60-1.25 TOTAL BILI (test code = 5304651537) 0.6 mg/dL 0.1-1.1 CALCIUM (test code = 5118829543) 9.4 mg/dL 8.6-10.6 T PROTEIN (test code = 5557568392) 7.8 g/dL 6.3-8.2 ALBUMIN (test code = 6304331175) 4.5 g/dL 3.5-5.0 ALK PHOS (test code = 6899593382) 71 U/L 34-122 ALTv (test code = 1742-6) 34 U/L 5-50 AST(SGOT) (test code = 1617637493) 37 U/L 13-40 eGFR (test code = 06590-5) 119.9 mL/min/1.73m2 CKD-EPI eGFR (2020). Assuming creatinine has been stable day-to-day for at least three months, the eGFR indicates Category G1 (>= 90 mL/min/1.73 m2) Lab Interpretation (test code = 16671-7) [facility] with [id number] 08:45:24* Test Item Value Reference Range Interpretation Comme nts WBC (test code = 6690-2) 8.30 4.20-10.70 RBC (test code = 789-8) 4.46 4.26-5.52 HGB (test code = 718-7) 12.5 g/dL 12.2-16.4 HCT (test code = 4544-3) 39.2 % 38.4-49.3 MCV (test code = 787-2) 87.9 fL 81.7-95.6 MCH (test code = 785-6) 28.0 pg 26.1-32.7 MCHC (test code = 786-4) 31.9 g/dL 31.2-35.0 RDW-SD (test code = 53251-9) 42.2 fL 38.5-51.6 RDW-CV (test code = 788-0) 13.0 % 12.1-15.4 PLT (test code = 777-3) 338 150-328 H MPV (test code = 44534-3) 9.8 fL 9.8-13.0 NRBC/100 WBC (test code = 9886352871) 0.0 0.0-10.0 NRBC x10^3 (test code = 9765170396) See_Comment [Automated messa ge] The system which generated this result transmitted reference range: 10*3/?L. The reference range was not used to interpret this result as normal/abnormal. GRAN MAT (NEUT) % (test code = 770-8) 54.8 % IMM GRAN % (test code = 2859282252) 0.20 % LYMPH % (test code = 736-9) 34.1 % MONO % (test code = 5905-5) 8.8 % EOS % (test code = 713-8) 1.9 % BASO % (test code = 706-2) 0.2 % GRAN MAT x10^3(ANC) (test code = 2967999100) 4.54 10*3/uL 1.99-6.95 IMM GRAN x10^3 (test code = 9064942998) 0.00-0.06 LYMPH x10^3 (test code = 731-0) 2.83 10*3/uL 1.09-3.23 MONO x10^3 (test code = 742-7) 0.73 10*3/uL 0.36-1.02 EOS x10^3 (test code = 711-2) 0.16 10*3/uL 0.06-0.53 BASO x10^3 (test code = 704-7) 0.01-0.09 Lab Interpretation (test code = 72727-7) [facility] (82059)2024-02-05 06:49:48* Test Item Value Reference Range Interpretation Comme nts NA (test code = 1290513904) 137 mmol/L 135-145 K (test code = 7807858062) 4.5 mmol/L 3.5-5.0 CL (test code = 9226319606) 103 mmol/L 98-108 CO2 TOTAL (test code = 4660247269) 26 mmol/L 23-31 AGAP (test code = 8029916262) 8 2-16 BUN (test code = 1246988748) 12 mg/dL 7-23 GLUCOSE (test code = 6004742714) 106 mg/dL 70-110 CREATININE (test code = 2160-0) 0.84 mg/dL 0.60-1.25 TOTAL BILI (test code = 8769715847) 0.7 mg/dL 0.1-1.1 CALCIUM (test code = 7882299530) 9.3 mg/dL 8.6-10.6 T PROTEIN (test code = 1344785977) 8.0 g/dL 6.3-8.2 ALBUMIN (test code = 0334012202) 4.5 g/dL 3.5-5.0 ALK PHOS (test code = 4463049894) 54 U/L 34-122 ALTv (test code = 1742-6) 63 U/L 5-50 H AST(SGOT) (test code = 0026399424) 40 U/L 13-40 eGFR (test code = 47452-9) 120.3 mL/min/1.73m2 CKD-EPI eGFR (2020). Assuming creatinine has been stable day-to-day for at least three months, the eGFR indicates Category G1 (>= 90 mL/min/1.73 m2) Lab Interpretation (test code = 20311-6) [facility] 06:49:08* Test Item Value Reference Range Interpretation Comme nts LIPASE (test code = 7128638648) 388 U/L 0-220 H Lab Interpretation (test cod e = 35704-5) Abnormal [facility] WITH [id number] 06:35:24* Test Item Value Reference Range Interpretation Comme nts WBC (test code = 6690-2) 7.07 4.20-10.70 RBC (test code = 789-8) 4.42 4.26-5.52 HGB (test code = 718-7) 12.5 g/dL 12.2-16.4 HCT (test code = 4544-3) 39.2 % 38.4-49.3 MCV (test code = 787-2) 88.7 fL 81.7-95.6 MCH (test code = 785-6) 28.3 pg 26.1-32.7 MCHC (test code = 786-4) 31.9 g/dL 31.2-35.0 RDW-SD (test code = 73048-4) 41.6 fL 38.5-51.6 RDW-CV (test code = 788-0) 12.7 % 12.1-15.4 PLT (test code = 777-3) 328 150-328 MPV (test code = 20463-9) 9.6 fL 9.8-13.0 L NRBC/100 WBC (test code = 6541492810) 0.0 0.0-10.0 NRBC x10^3 (test code = 4697121599) See_Comment [Automated messa ge] The system which generated this result transmitted reference range: 10*3/?L. The reference range was not used to interpret this result as normal/abnormal. GRAN MAT (NEUT) % (test code = 770-8) 49.6 % IMM GRAN % (test code = 1086791834) 0.10 % LYMPH % (test code = 736-9) 39.7 % MONO % (test code = 5905-5) 8.5 % EOS % (test code = 713-8) 1.7 % BASO % (test code = 706-2) 0.4 % GRAN MAT x10^3(ANC) (test code = 6076591390) 3.50 10*3/uL 1.99-6.95 IMM GRAN x10^3 (test code = 7469024528) 0.00-0.06 LYMPH x10^3 (test code = 731-0) 2.81 10*3/uL 1.09-3.23 MONO x10^3 (test code = 742-7) 0.60 10*3/uL 0.36-1.02 EOS x10^3 (test code = 711-2) 0.12 10*3/uL 0.06-0.53 BASO x10^3 (test code = 704-7) 0.03 10*3/uL 0.01-0.09 Lab Interpretation (test code = 29735-2) [facility] [id number] 03:41:09EXAM: CT ABDOMEN PELVIS WO CONTRAST ORDERING PROVIDER: EMILY PERRY HISTORY: 28 years-old Male; Ordered Indication: Abdominal pain, acute,nonlocalized . TECHNIQUE: Contiguous axial imaging from the level of the lung basesthrough the proximal thighs was performed without the intravenousadministration of contrast. Coronal and sagittal reconstructions wereobtained. COMPARISON: None FINDINGS: LOWER THORAX: No suspicious nodule is seen.. LIVER: No suspicious lesion is seen within a noncontrast examination. Theliver is enlarged over 19 cm in the craniocaudal dimension and theparenchyma is diffusely steatotic. GALLBLADDER AND BILIARY TREE: The gallbladder is decompressed. No biliaryductal dilatation is visualized. SPLEEN: The spleen is normal in size. PANCREAS: No ductal dilation or solid mass is visualized. ADRENAL GLANDS: No mass is seen. KIDNEYS/URETER/BLADDER: No stone, hydronephrosis, or suspicious mass isvisualized. The bladder is unremarkable. PELVIC ORGANS: No suspicious pelvic mass is seen. GI TRACT: No obstruction is seen. The appendix appears unremarkable. PERITONEUM AND RETROPERITONEUM: No intra-abdominal free air or fluidcollection is visualized. LYMPH NODES: No suspicious lymphadenopathy is seen. VESSELS: The vessels are grossly unremarkable. BONES AND SOFT TISSUES: Nosuspicious osseous lesion is seen. [id number]13:11* Test Item Value Reference Range Interpretation Comme nts TROPONIN I (test code = 1461923203) 0.001 ng/mL <=0.034 TIFFANY (test code = TIFFANY) Reference (Normal) Range (defined by the 99th percentile reference limit): <= 0.034 ng/mL Note: Cardiac troponin begins to rise 3-4 hours after the onset of ischemia. Repeat in 4-6 hours if the sample was drawn within 3-4 hours of the onset of the symptom and found normal. Diagnosis of myocardial injury is made with acute changes in cTn concentrations with at least one serial sample above the 99th percentile upper reference limit (URL), taken together with the patient's clinical presentation. Biotin has been reported to cause a negative bias, interpret results relative to patient's use of biotin. Lab Interpretation (test code = 06832-0) Normal [facility]. Metabolic Panel ([id number] 03:01:50* Test Item Value Reference Range Interpretation Comme nts NA (test code = 9447553370) 140 mmol/L 135-145 K (test code = 9569314628) 3.6 mmol/L 3.5-5.0 CL (test code = 2706494429) 105 mmol/L 98-108 CO2 TOTAL (test code = 8387514639) 24 mmol/L 23-31 AGAP (test code = 3086757358) 11 2-16 BUN (test code = 3057062340) 12 mg/dL 7-23 GLUCOSE (test code = 0980098157) 146 mg/dL 70-110 H CREATININE (test code = 2160-0) 0.89 mg/dL 0.60-1.25 TOTAL BILI (test code = 4976270176) 0.4 mg/dL 0.1-1.1 CALCIUM (test code = 1552675782) 9.4 mg/dL 8.6-10.6 T PROTEIN (test code = 2075384676) 7.4 g/dL 6.3-8.2 ALBUMIN (test code = 8815510120) 4.2 g/dL 3.5-5.0 ALK PHOS (test code = 8919430110) 71 U/L 34-122 ALTv (test code = 1742-6) 41 U/L 5-50 AST(SGOT) (test code = 4151845683) 31 U/L 13-40 eGFR (test code = 51629-2) 118.2 mL/min/1.73m2 CKD-EPI eGFR (2020). Assuming creatinine has been stable day-to-day for at least three months, the eGFR indicates Category G1 (>= 90 mL/min/1.73 m2) Lab Interpretation (test code = 76875-8) [facility]normal [facility] 03:01:50* Test Item Value Reference Range Interpretation Comme nts LIPASE (test code = 6777894886) 404 U/L 0-220 H Lab Interpretation (test cod e = 59318-9) Abnormal [facility] with [id number] 02:48:30* Test Item Value Reference Range Interpretation Comme nts WBC (test code = 6690-2) 7.53 4.20-10.70 RBC (test code = 789-8) 4.25 4.26-5.52 L HGB (test code = 718-7) 12.0 g/dL 12.2-16.4 L HCT (test code = 4544-3) 37.6 % 38.4-49.3 L MCV (test code = 787-2) 88.5 fL 81.7-95.6 MCH (test code = 785-6) 28.2 pg 26.1-32.7 MCHC (test code = 786-4) 31.9 g/dL 31.2-35.0 RDW-SD (test code = 96120-9) 41.6 fL 38.5-51.6 RDW-CV (test code = 788-0) 12.8 % 12.1-15.4 PLT (test code = 777-3) 298 150-328 MPV (test code = 16316-1) 9.9 fL 9.8-13.0 NRBC/100 WBC (test code = 1127943413) 0.0 0.0-10.0 NRBC x10^3 (test code = 6046571897) See_Comment [Automated messa ge] The system which generated this result transmitted reference range: 10*3/?L. The reference range was not used to interpret this result as normal/abnormal. GRAN MAT (NEUT) % (test code = 770-8) 60.6 % IMM GRAN % (test code = 1385764904) 0.10 % LYMPH % (test code = 736-9) 29.5 % MONO % (test code = 5905-5) 7.4 % EOS % (test code = 713-8) 2.1 % BASO % (test code = 706-2) 0.3 % GRAN MAT x10^3(ANC) (test code = 3343320480) 4.56 10*3/uL 1.99-6.95 IMM GRAN x10^3 (test code = 2126249797) 0.00-0.06 LYMPH x10^3 (test code = 731-0) 2.22 10*3/uL 1.09-3.23 MONO x10^3 (test code = 742-7) 0.56 10*3/uL 0.36-1.02 EOS x10^3 (test code = 711-2) 0.16 10*3/uL 0.06-0.53 BASO x10^3 (test code = 704-7) 0.01-0.09 Lab Interpretation (test code = 60241-7) Abnormal [facility]
[2024-03-25] MEDS ORDERED: ONDANSETRON 4 MG/2 ML VIAL ONE (02:06)
[2024-03-25] MEDS ORDERED: NA CHLORIDE 0.9% 1,000 ML ONE ×2 (02:07→03:22)
[2024-03-25] MEDS ORDERED: FAMOTIDINE 20 MG/2 ML VIAL IV ONE (02:07)
[2024-03-25] MEDS ORDERED: MORPHINE 4 MG/ML SYR ONE ×3 (02:07→04:36)
[2024-03-25 02:10] LABS: Absolute Basophils 0.1 K/uL (0-0.5); Absolute Eosinophils 0.2 K/uL (0-0.5); Absolute Lymphocytes (CBC) 2.4 K/uL (0.7-4.9); Absolute Monocytes 0.6 K/uL (0.1-1.3); Absolute Neutrophil 3.9 K/uL (1.8-8.0); Basophils % 0.7 % (0-1.3); Eosinophils % 2.2 % (0-4.4); Hematocrit 38.3 % (39.6-49.0); Hemoglobin 12.5 g/dL (13.6-17.9); Lymphocytes % 33.7 % (15.3-44.8); MCH 27.4 pg (27.0-35.0); MCHC 32.7 g/dL (32.0-36.0); MPV 7.8 fL (7.6-11.3); Monocytes % 8.3 % (3.3-12.3); Neutrophils % 55.1 % (41.7-73.7); Nucleated Red Blood Cells % 0.1 % (0-0); Platelets 331 thou/uL (152-406); RBC Red Blood Cell Count 4.56 M/uL (4.33-5.43); Red Cell Distribution Width 14.3 % (12.1-15.2)
[2024-03-25 02:17] LABS: Renal Epithelial <5 /HPF (None Seen); Specific Gravity 1.014 (1.005-1.030); Sqamous Epithelial <5 /HPF (None Seen); Urine Bacteria None Seen /HPF (<20); Urine Bilirubin NEGATIVE (Negative); Urine Blood Negative (Negative); Urine Clarity Clear (Clear); Urine Color Colorless (Yellow); Urine Culture Reflex Order NOT NEEDED; Urine Glucose NEGATIVE (Negative); Urine Ketones NEGATIVE (Negative); Urine Microscopic Reflex YN ORDER UMIC; Urine Mucus Slight /HPF (None Seen); Urine Nitrite NEGATIVE (Negative); Urine Protein NEGATIVE (Negative); Urine RBC <5 /HPF (None Seen); Urine Urobilinogen Normal (Normal); Urine pH 5.5 (5.0-7.0)
[2024-03-25 02:25] LABS: Albumin 3.6 g/dL (3.4-5.0); Albumin/Globulin Ratio 0.8 (1.1-1.8); Anion Gap 8.6 mEq/L (5.0-15.0); Bilirubin Total 0.5 mg/dL (0.2-1.0); Globulin 4.5 g/dL (2.3-3.5); Potassium 3.6 mEq/L (3.5-5.1); Protein, Total 8.1 g/dL (6.4-8.2)
--- NOTE | 2024-03-25 04:09 | RAD REPORT ---
CT ABDOMEN PELVIS WITH IV CONTRAST, CT CHEST ANGIOGRAPHY WITH IV CONTRAST CLINICAL INDICATION: Chest and abdominal pain.. COMPARISON: CT abdomen and pelvis 04/19/2021 TECHNIQUE: CTA CHEST: CT images of the chest was obtained during the arterial phase following the administration of intravenous contrast. Multiplanar and 3D MIP reformats were provided. Dose-optimization techniques such as automated exposure control, iterative reconstruction, and mA and/or kV adjustment for patient size was utilized for this examination. CT ABDOMEN/PELVIS: CT images of the abdomen and pelvis were obtained following the administration of intravenous contrast with multiplanar reformats. Dose lowering techniques such as automated exposure control, iterative reconstruction, and mA and/or kV adjustment for patient size was utilized for this examination. CHEST FINDINGS: Exam is limited by body habitus. LOWER NECK: Unremarkable. AIRWAYS: Trachea and mainstem bronchi are patent. LUNGS/PLEURA: Mild dependent changes at bilateral lower lobes. No focal air space consolidation, mass , or nodules present. No pleural effusions or pneumothorax. VASCULATURE: The large or central pontine embolism. Evaluation of segmental and subsegmental pulmonar y arterial branches is limited by suboptimal contrast opacification related to body habitus. No evidence of thoracic aortic aneurysm or dissection. MEDIASTINUM/NODES: No pathologic adenopathy. HEART: Normal heart size. No pericardial effusion. OSSEOUS/CHEST WALL: Unremarkable. ABDOMEN/PELVIS FINDINGS: LIVER: No focal lesion. BILIARY: Unremarkable. PANCREAS: Unremarkable. SPLEEN: Unremarkable. ADRENALS: Unremarkable. KIDNEYS/URETERS: No nephrolithiasis or hydronephrosis. No suspicious lesion. STOMACH: Unremarkable. BOWEL: Unremarkable. APPENDIX: Appendix is not definitively visualized. No focal inflammation in right lower quadrant to s uggest acute appendicitis. MESENTERY/PERITONEUM: Unremarkable. LYMPH NODES: Unremarkable. URINARY BLADDER: Unremarkable. REPRODUCTIVE: Unremarkable. VASCULAR: Unremarkable. ABDOMINAL/PELVIC WALL: Unremarkable. BONES: Moderate central canal stenosis at L4-5 level secondary to disc bulge and ligamentum flavum hy pertrophy. No acute fracture or malalignment. No compression deformity, nor osteolytic or sclerotic lesion. IMPRESSION: 1. No large or central pulmonary embolism. 2. No acute inflammatory process in the chest, abdomen and pelvis. 3. Moderate central canal stenosis at L4-5 level secondary to disc bulge and ligamentum flavum hype rtrophy. Electronically signed by: Ann Norris MD 03/25/2024 04:05 AM [facility] Due to temporary technical issues with the PACS/[employer] reporting system, reports are being katelin d by the in-house radiologist without review as a courtesy to ensure prompt reporting the interpreting radiologist is fully responsible for the content of the report. Transcribed Date/Time: 03/25/2024 4:09 AM
--- NOTE | 2024-03-25 04:09 | RAD REPORT ---
CT ABDOMEN PELVIS WITH IV CONTRAST, CT CHEST ANGIOGRAPHY WITH IV CONTRAST CLINICAL INDICATION: Chest and abdominal pain.. COMPARISON: CT abdomen and pelvis 04/19/2021 TECHNIQUE: CTA CHEST: CT images of the chest was obtained during the arterial phase following the administration of intravenous contrast. Multiplanar and 3D MIP reformats were provided. Dose-optimization techniques such as automated exposure control, iterative reconstruction, and mA and/or kV adjustment for patient size was utilized for this examination. CT ABDOMEN/PELVIS: CT images of the abdomen and pelvis were obtained following the administration of intravenous contrast with multiplanar reformats. Dose lowering techniques such as automated exposure control, iterative reconstruction, and mA and/or kV adjustment for patient size was utilized for this examination. CHEST FINDINGS: Exam is limited by body habitus. LOWER NECK: Unremarkable. AIRWAYS: Trachea and mainstem bronchi are patent. LUNGS/PLEURA: Mild dependent changes at bilateral lower lobes. No focal air space consolidation, mass , or nodules present. No pleural effusions or pneumothorax. VASCULATURE: The large or central pontine embolism. Evaluation of segmental and subsegmental pulmonar y arterial branches is limited by suboptimal contrast opacification related to body habitus. No evidence of thoracic aortic aneurysm or dissection. MEDIASTINUM/NODES: No pathologic adenopathy. HEART: Normal heart size. No pericardial effusion. OSSEOUS/CHEST WALL: Unremarkable. ABDOMEN/PELVIS FINDINGS: LIVER: No focal lesion. BILIARY: Unremarkable. PANCREAS: Unremarkable. SPLEEN: Unremarkable. ADRENALS: Unremarkable. KIDNEYS/URETERS: No nephrolithiasis or hydronephrosis. No suspicious lesion. STOMACH: Unremarkable. BOWEL: Unremarkable. APPENDIX: Appendix is not definitively visualized. No focal inflammation in right lower quadrant to s uggest acute appendicitis. MESENTERY/PERITONEUM: Unremarkable. LYMPH NODES: Unremarkable. URINARY BLADDER: Unremarkable. REPRODUCTIVE: Unremarkable. VASCULAR: Unremarkable. ABDOMINAL/PELVIC WALL: Unremarkable. BONES: Moderate central canal stenosis at L4-5 level secondary to disc bulge and ligamentum flavum hy pertrophy. No acute fracture or malalignment. No compression deformity, nor osteolytic or sclerotic lesion. IMPRESSION: 1. No large or central pulmonary embolism. 2. No acute inflammatory process in the chest, abdomen and pelvis. 3. Moderate central canal stenosis at L4-5 level secondary to disc bulge and ligamentum flavum hype rtrophy. Electronically signed by: Ann Norris MD 03/25/2024 04:05 AM [facility] Due to temporary technical issues with the PACS/[employer] reporting system, reports are being katelin d by the in-house radiologist without review as a courtesy to ensure prompt reporting the interpreting radiologist is fully responsible for the content of the report. Transcribed Date/Time: 03/25/2024 4:09 AM
--- NOTE | 2024-03-25 04:23 | EDPHYS ---
Physician Documentation [facility] Name: Andrew Beckett Age: 28 yrs Sex: Male : 1995 Arrival Date: 03/25/2024 Time: 00:08 Bed 5 Private MD: Roger Khan HPI: 03/25 02:09 This 28 yrs old Black Male presents to ER via Ambulatory with complaints of Abdominal delia Pain. 02:09 This 28 yrs old Black Male presents to ER via Ambulatory with complaints of Abdominal delia Pain. 02:09 The patient or guardian reports chest pain that is located primarily in the anterior delia chest wall, left. The patient presents with abdominal pain in the epigastric area, in the left upper quadrant, abdominal distention in the upper abdomen. Onset: The symptoms/episode began/occurred yesterday. The symptoms do not radiate. The pain does not radiate. Associated signs and symptoms: Pertinent positives: nausea, shortness of breath. Modifying factors: The symptoms are alleviated by nothing, the symptoms are aggravated by movement, pressure. The chest pain is described as aching. Historical: - Allergies: 00:45 No Known Allergies; ha1 - Home Meds: 00:45 metformin 500 mg Oral tab 1 tab 2 times per day [Active]; ha1 - PMHx: 00:45 diabetes mellitus; Hypertension; Pancreatitis; ha1 - Immunization history:: Adult Immunizations up to date. - Infectious Disease History:: Denies. - Social history:: Smoking status: Reported history of juuling and/or vaping. - Family history:: not pertinent. ROS: 02:09 Constitutional: Negative for fever, chills, and weight loss, Eyes: Negative for injury, delia pain, redness, and discharge, ENT: Negative for injury, pain, and discharge, Neck: Negative for injury, pain, and swelling, Cardiovascular: Negative for chest pain, palpitations, and edema, Respiratory: Negative for shortness of breath, cough, wheezing, and pleuritic chest pain, Abdomen/GI: Negative for abdominal pain, nausea, vomiting, diarrhea, and constipation, Back: Negative for injury and pain, : Negative for injury, bleeding, discharge, and swelling, MS/Extremity: Negative for injury and deformity, Skin: Negative for injury, rash, and discoloration, Neuro: Negative for headache, weakness, numbness, tingling, and seizure, Psych: Negative for depression, anxiety, suicide ideation, homicidal ideation, and hallucinations, Allergy/Immunology: Negative for hives, rash, and allergies, Endocrine: Negative for neck swelling, polydipsia, polyuria, polyphagia, and marked weight changes, Hematologic/Lymphatic: Negative for swollen nodes, abnormal bleeding, and unusual bruising, 02:09 MS/extremity: Negative for decreased range of motion, swelling, tenderness, Exam: 02:13 Constitutional: This is a well developed, well nourished patient who is awake, alert, delia and in no acute distress. Head/Face: Normocephalic, atraumatic. Eyes: Pupils equal round and reactive to light, extra-ocular motions intact. Lids and lashes normal. Conjunctiva and sclera are non-icteric and not injected. Cornea within normal limits. Periorbital areas with no swelling, redness, or edema. ENT: Nares patent. No nasal discharge, no septal abnormalities noted. Tympanic membranes are normal and external auditory canals are clear. Oropharynx with no redness, swelling, or masses, exudates, or evidence of obstruction, uvula midline. Mucous membranes moist. Neck: Trachea midline, no thyromegaly or masses palpated, and no cervical lymphadenopathy. Supple, full range of motion without nuchal rigidity, or vertebral point tenderness. No Meningismus. Chest/axilla: Normal chest wall appearance and motion. Nontender with no deformity. No lesions are appreciated. Cardiovascular: Regular rate and rhythm with a normal S1 and S2. No gallops, murmurs, or rubs. Normal PMI, no JVD. No pulse deficits. Respiratory: Lungs have equal breath sounds bilaterally, clear to auscultation and percussion. No rales, rhonchi or wheezes noted. No increased work of breathing, no retractions or nasal flaring. Back: No spinal tenderness. No costovertebral tenderness. Full range of motion. Skin: Warm, dry with normal turgor. Normal color with no rashes, no lesions, and no evidence of cellulitis. MS/ Extremity: Pulses equal, no cyanosis. Neurovascular intact. Full, normal range of motion., bilateral aka Neuro: Awake and alert, GCS 15, oriented to person, place, time, and situation. Cranial nerves II-XII grossly intact. Motor strength 5/5 in all extremities. Sensory grossly intact. Cerebellar exam normal. Normal gait. Psych: Awake, alert, with orientation to person, place and time. Behavior, mood, and affect are within normal limits. 02:13 Abdomen/GI: Inspection: distension, that is moderate, Bowel sounds: normal, Palpation: moderate abdominal tenderness, in the left upper quadrant, Liver: no appreciated palpable abnormalities, Hernia: not appreciated, 02:52 ECG was reviewed by the Attending Physician. [facility] Vital Signs: 00:45 BP 157 / 110; Pulse 74; Resp 20; Temp 97.6(T); Pulse Ox 100% on R/A; Height 5 ft. 6 in. ha1 ; 01:07 Weight 177.81 kg (M); ha1 03:08 BP 146 / 95; Pulse 76; Resp 18; Pulse Ox 99% ; cp4 03:45 BP 137 / 81; Pulse 71; Resp 18; Pulse Ox 99% ; br2 04:45 BP 134 / 90; Pulse 73; Resp 18 S; Pulse Ox 99% on R/A; br2 MDM: 00:20 Medical Screening Exam initiated delia 02:10 Differential diagnosis: abnormal EKG, acute myocardial infarction, acute pericarditis, delia anxiety, cholecystitis, Cholelithiasis costochondritis, esophagitis, gastroesophageal reflux disease (GERD), herpes zoster, peptic ulcer disease, pericarditis, pneumonia, pneumothorax, pulmonary embolus, thoracic aortic disection, unstable angina, bowel obstruction, gastritis, pancreatitis, Peritonitis, urinary tract infection. HEART Score: History: Slightly Suspicious (0), ECG: Non specific repolarization disturbance / LBTB / PM (1), Age: < or = 45 years (0), Risk Factors: > or = 3 Risk factors for atherosclerotic disease (2), [Hypertension] [DM] [+ Family HX] [Obesity] Troponin: < or = 1 x Normal Limit (0). JESUS MANUEL Risk Score: 1 - Three or more CAD risk factors, [Family Hx], [HTN], [DM]. Data reviewed: vital signs, nurses notes, lab test result(s), EKG, radiologic studies, CT scan, plain films. Consideration of Admission/Observation Escalation of care including admission/observation considered. I considered the following discharge prescriptions or medication management in the emergency department Medications were administered in the Emergency Department. See MAR. Independent interpretation of the following test(s) in the Emergency Department EKG: See my EKG interpretation above. Test considered but Not performed: Ultrasound NO 2 D ECHO. Historians other than the Patient: Spouse/Significant Other: WELL INFORMED. Care significantly affected by the following chronic conditions: Diabetes, Hypertension, Obesity. Counseling: I had a detailed discussion with the patient and/or guardian regarding the historical points, exam findings, and any diagnostic results supporting the discharge/admit diagnosis, the presence of at least one elevated blood pressure reading (>120/80) during this emergency department visit, lab results, radiology results. 03/25 00:21 Order name: CBC with Diff; Complete Time: 02:16 [facility] 03/25 00:21 Order name: CMP [facility] 03/25 00:21 Order name: Lipase [facility] 03/25 00:21 Order name: Urinalysis w/ reflexes; Complete Time: 02:53 [facility] 03/25 02:08 Order name: Troponin High Sensitivity; Complete Time: 02:53 [facility] 03/25 04:06 Order name: Lipid Profile [facility] 03/25 00:21 Order name: CT Abd/Pelvis - IV Contrast Only [facility] 03/25 02:08 Order name: CT Chest For PE Angio [facility] 03/25 02:08 Order name: EKG; Complete Time: 02:08 [facility] 03/25 00:21 Order name: IV Saline Lock; Complete Time: 02:05 [facility] 03/25 00:21 Order name: Labs collected and sent; Complete Time: 02:05 [facility] 03/25 02:08 Order name: EKG - Nurse/Tech; Complete Time: 02:25 [facility] EC:52 Rate is 72 beats/min. Rhythm is regular. QRS [place] is Normal. [place] interval is normal. QRS delia interval is normal. QT interval is normal. No Q waves. T waves are Normal. No ST changes noted. Clinical impression: Normal ECG and No evidence of ischemia. Interpreted by me. Reviewed by me. Administered Medications: 02:15 Drug: Famotidine IVP 20 mg IVP once; dilute with 10 mL 0.9% NaCl; give over 2 minutes cp4 Route: IVP; Site: right antecubital; 03:43 Follow up: Response: No adverse reaction cp4 02:15 Drug: Ondansetron IVP 4 mg IVP once; over 2 minutes Route: IVP; Site: right antecubital;cp4 03:43 Follow up: Response: No adverse reaction cp4 02:15 Drug: morphine IVP or IV 4 mg IVP once over 4 mins Route: IVP; Infused Over: 4 mins; cp4 Site: right antecubital; 03:42 Follow up: Response: No adverse reaction cp4 02:15 Drug: NS 0.9% IV 1000 ml IV at 1 bolus Per protocol; to be given as a bolus over 60 cp4 minutes Route: IV; Rate: 1 bolus; Site: right antecubital; 04:49 Follow up: Response: No adverse reaction; IV Status: Completed infusion cp4 02:30 Drug: morphine IVP or IV 4 mg IVP once over 4 mins Route: IVP; Infused Over: 4 mins; cp4 Site: right antecubital; 03:43 Follow up: Response: No adverse reaction; Pain is decreased cp4 03:42 Drug: NS 0.9% IV 1000 ml IV at 1000 ml once; to be given as a bolus over 60 minutes cp4 Route: IV; Rate: 1000 ml; Site: right antecubital; 04:49 Follow up: Response: No adverse reaction; IV Status: Completed infusion cp4 Disposition Summary: 03/25/24 04:23 Discharge Ordered Notes: Location: Home delia Problem: new delia Symptoms: have improved delia Condition: Stable delia Diagnosis - Epigastric abdominal tenderness delia - Chest pain, unspecified delia - Obesity, unspecified delia - Abnormal levels of other serum enzymes - ELEVATED LIPASE edlia Followup: delia - With: Private Physician - When: 2 - 3 days - Reason: Recheck today's complaints, Continuance of care, Re-evaluation by your physician Followup: delia - With: Francois Schmid MD - When: 2 - 3 days - Reason: Recheck today's complaints, Re-evaluation by your physician Followup: delia - With: Gomez Rose MD - When: 2 - 3 days - Reason: Recheck today's complaints, Re-evaluation by your physician Discharge Instructions: - Discharge Summary Sheet delia - Abdominal Pain, Adult delia - Nonspecific Chest Pain, Adult delia - Obesity, Adult delia - Acute Pancreatitis, [id number] delia - Nonspecific Chest Pain, Adult, [id number] delia - Aspirin and Your Heart delia - Chronic Pancreatitis delia - Pancreatitis Eating Plan delia Forms: - Medication Reconciliation Form delia - Antibiotic Education delia - Prescription Opioid Use delia - Patient Portal Instructions [facility] - Leadership Thank You Letter [facility] Prescriptions: - ondansetron 4 mg Oral Tablet,disintegrating - take 1 tablet ORAL route every 6-8 hours prn nausea; 20 tablet; Refills: 0, [facility] Product Selection Permitted - Pepcid 20 mg Oral tablet - take 1 tablet ORAL route every 12 hours for 21 days; 42 tablet; Refills: 0, [facility] Product Selection Permitted - dicyclomine 20 mg Oral tablet - take 1 tablet ORAL route 4 times per day; 28 tablet; Refills: 0, Product [facility] Selection Permitted Signatures: Dispatcher [employer] EDMS Roger Pereira MD MD cha Ayala, Heidy, RN RN ha1 Lisa Anderson cp4 Corrections: (The following items were deleted from the chart) 00:22 00:22 CBC+H.LAB.BRZ ordered. EDMS EDMS 00:22 00:22 COMPREHENSIVE METABOLIC PANEL+C.LAB.BRZ ordered. EDMS EDMS 00:22 00:22 LIPASE+C.LAB.BRZ ordered. EDMS EDMS 00:22 00:22 Urinalysis+U.LAB.BRZ ordered. EDMS EDMS 00:22 00:22 Abdomen Pelvis W Con+CT.RAD.BRZ ordered. EDMS EDMS 04:06 03:58 LIPID PROFILE+C.LAB.BRZ ordered. EDMS EDMS
--- NOTE | 2024-03-25 04:23 | ER ---
Nurse's Notes [facility] Name: Andrew Beckett Age: 28 yrs Sex: Male : 1995 Arrival Date: 03/25/2024 Time: 00:08 Bed 5 Private MD: Diagnosis: Epigastric abdominal tenderness;Chest pain, unspecified;Obesity, unspecified;Abnormal levels of other serum enzymes-ELEVATED LIPASE Presentation: 03/25 00:45 Chief complaint: Patient states: LEFT UPPER QUADRANT PAIN, NAUSEA . ha1 00:45 Coronavirus screen: Client denies travel out of the [place] in the last 14 days. Ebola ha1 Screen: No symptoms or risks identified at this time. Initial Sepsis Screen: Does the patient meet any 2 criteria? No. Patient's initial sepsis screen is negative. Does the patient have a suspected source of infection? No. Patient's initial sepsis screen is negative. Risk Assessment: Do you want to hurt yourself or someone else? Patient reports no desire to harm self or others. Onset of symptoms was March 25, 2024. 00:45 Method Of Arrival: Ambulatory ha1 00:45 Acuity: ELIER 3 ha1 Triage Assessment: 00:45 General: Appears uncomfortable, Behavior is cooperative. Pain: Complains of pain in ha1 left upper quadrant Pain currently is 10 out of 10 on a pain scale. Neuro: Level of Consciousness is awake, alert, obeys commands, Oriented to person, place, time, situation. Respiratory: Airway is patent Respiratory effort is even, unlabored, Respiratory pattern is regular, symmetrical. GI: Abdomen is round obese, Reports upper abdominal pain, nausea. Historical: - Allergies: 00:45 No Known Allergies; ha1 - Home Meds: 00:45 metformin 500 mg Oral tab 1 tab 2 times per day [Active]; ha1 - PMHx: 00:45 diabetes mellitus; Hypertension; Pancreatitis; ha1 - Immunization history:: Adult Immunizations up to date. - Infectious Disease History:: Denies. - Social history:: Smoking status: Reported history of juuling and/or vaping. - Family history:: not pertinent. Screenin:30 [facility] ED Fall Risk Assessment (Adult) History of falling in the last 3 months, cp4 including since admission No falls in past 3 months (0 pts) Confusion or Disorientation No (0 pts) Intoxicated or Sedated No (0 pts) Impaired Gait No (0 pts) Mobility Assist Device Used No (0 pt) Altered Elimination No (0 pt) Score/Fall Risk Level 0 - 2 = Low Risk Oriented to surroundings, Maintained a safe environment, Assessed \T\ reinforced patient's understanding of fall precautions, Hourly rounding (assess needs \T\ fall precautionary measures) done. Abuse screen: Denies threats or abuse. Denies injuries from another. Nutritional screening: No deficits noted. Tuberculosis screening: No symptoms or risk factors identified. Assessment: 01:30 General: Appears in no apparent distress. uncomfortable, Behavior is calm, cooperative, cp4 appropriate for age. 01:30 Pain: Complains of pain in abdomen and left upper quadrant Pain currently is 9 out of cp4 10 on a pain scale. Neuro: Level of Consciousness is awake, alert, obeys commands, Oriented to person, place, time, situation. Cardiovascular: Patient's skin is warm and dry. Respiratory: Airway is patent Respiratory effort is even, unlabored. GI: Abdomen is obese, Bowel sounds present X 4 quads. Abd is soft and non tender X 4 quads. : No signs and/or symptoms were reported regarding the genitourinary system. EENT: No signs and/or symptoms were reported regarding the EENT system. Derm: No signs and/or symptoms reported regarding the dermatologic system. Musculoskeletal: No signs and/or symptoms reported regarding the musculoskeletal system. Vital Signs: 00:45 BP 157 / 110; Pulse 74; Resp 20; Temp 97.6(T); Pulse Ox 100% on R/A; Height 5 ft. 6 in. ha1 ; 01:07 Weight 177.81 kg (M); ha1 03:08 BP 146 / 95; Pulse 76; Resp 18; Pulse Ox 99% ; cp4 03:45 BP 137 / 81; Pulse 71; Resp 18; Pulse Ox 99% ; br2 04:45 BP 134 / 90; Pulse 73; Resp 18 S; Pulse Ox 99% on R/A; br2 ED Course: 00:11 Patient arrived in ED. gm2 00:20 Roger Pereira MD is Attending Physician. delia 01:05 Triage completed. ha1 01:30 No provider procedures requiring assistance completed. cp4 01:30 Bed in low position. Call light in reach. Side rails up X 1. Provided Education on: cp4 pancreatitis . 01:52 Inserted saline lock: 20 gauge in right antecubital area, using aseptic technique. oe Blood collected. Flushed with 10 mL NS. 02:15 Lisa Anderson is Primary Nurse. cp4 03:00 CT Abd/Pelvis - IV Contrast Only In Process Unspecified. EDMS 03:00 CT Chest For PE Angio In Process Unspecified. EDMS 04:22 Francois Schmid MD is Referral Physician. delia 04:22 Gomez Rose MD is Referral Physician. delia 04:44 IV discontinued, intact, bleeding controlled, No redness/swelling at site. Pressure br2 dressing applied. 04:48 Arm band placed on right wrist. Patient placed in waiting room. cp4 Administered Medications: 02:15 Drug: Famotidine IVP 20 mg IVP once; dilute with 10 mL 0.9% NaCl; give over 2 minutes cp4 Route: IVP; Site: right antecubital; 03:43 Follow up: Response: No adverse reaction cp4 02:15 Drug: Ondansetron IVP 4 mg IVP once; over 2 minutes Route: IVP; Site: right antecubital;cp4 03:43 Follow up: Response: No adverse reaction cp4 02:15 Drug: morphine IVP or IV 4 mg IVP once over 4 mins Route: IVP; Infused Over: 4 mins; cp4 Site: right antecubital; 03:42 Follow up: Response: No adverse reaction cp4 02:15 Drug: NS 0.9% IV 1000 ml IV at 1 bolus Per protocol; to be given as a bolus over 60 cp4 minutes Route: IV; Rate: 1 bolus; Site: right antecubital; 04:49 Follow up: Response: No adverse reaction; IV Status: Completed infusion cp4 02:30 Drug: morphine IVP or IV 4 mg IVP once over 4 mins Route: IVP; Infused Over: 4 mins; cp4 Site: right antecubital; 03:43 Follow up: Response: No adverse reaction; Pain is decreased cp4 03:42 Drug: NS 0.9% IV 1000 ml IV at 1000 ml once; to be given as a bolus over 60 minutes cp4 Route: IV; Rate: 1000 ml; Site: right antecubital; 04:49 Follow up: Response: No adverse reaction; IV Status: Completed infusion cp4 Medication: 01:30 VIS not applicable for this client. cp4 Outcome: 04:23 Discharge ordered by . delia 04:44 Discharged to home ambulatory, brChiqui 04:44 Condition: good 04:44 Discharge instructions given to patient, Instructed on discharge instructions, follow up and referral plans. Demonstrated understanding of instructions, follow-up care, medications, Prescriptions given X 3, 04:48 Patient left the ED. cp4 Signatures: Dispatcher [employer] EDMS Roger Pereira MD MD cha Espinosa, Orlando oe Ayala, Heidy, RN RN ha1 Lisa Anderson cp4 Magdalena Craven gm2 Abida Andres RN RN br2
[2024-03-25 04:57] VITALS: TEMP 97.6
[2024-03-25 05:02] VITALS: O2SAT 99
[2024-03-25 05:14] VITALS: BP 134/90
--- NOTE | 2024-03-26 12:45 | EKG ---
Test Date: 2024-03-25 Test Time: 02:23:19 Irrigation Flume Layer: NEYMAR MEASUREMENT RESULTS: Intervals: Rate: 72 [place]: 186 QRSD: 90 QT: 380 QTc: 416 [place]: P: 48 [place]: 186 QRS: 75 T: 63 INTERPRETIVE STATEMENTS: Normal sinus rhythm Normal ECG Compared to ECG 04/19/2021 11:14:26 No significant changes Electronically Signed On 03-26-24 12:42:00 MANAGER FUNCTIONAL by Reese Pimentel
== END 2024-03-25 04:48 | disposition home or self-care (01) ==
LOC: ER 00:08
DX: R10.816 Epigastric abdominal tenderness (principal); R07.9 Chest pain, unspecified; R74.8 Abnormal levels of other serum enzymes; E66.9 Obesity, unspecified; E11.9 Type 2 diabetes mellitus without complications; I10 Essential (primary) hypertension
CPT/HCPCS: 93005; 85025; 81001; 36415; 80061; 84484; 83690; 80053; 71275; 74177; Q9967; J2405; J7030 ×2; 96361; 96374; 96375; 99284